=== PATIENT | male | born 1970 | race Hispanic/Latino ===

== ENCOUNTER 2021-02-15 15:51 | Emergency (ER) | payer OTHER ==
[~2021-02-15] VITALS: Ht 167.6 cm; Wt 92.5 kg
[2021-02-15] MEDS ORDERED: HYDROCODON-ACE1 EA10 PO (19:08)
== END 2021-02-15 19:26 | disposition home or self-care (01) ==
LOC: ED 15:51
DX: S22.42XA Multiple fractures of ribs, left side, initial encounter for closed fracture (principal); W01.198A Fall on same level from slipping, tripping and stumbling with subsequent striking against other object, initial encounter
CPT/HCPCS: 71101; 80053; 81001; 83735; 85025; 99284; U0003